=== PATIENT | male | born 1990 | race Caucasian/White ===

== ENCOUNTER 2019-01-18 17:15 | Emergency (ER) | payer BC ==
[~2019-01-18] VITALS: Ht 200.7 cm; Wt 156.5 kg
[~2019-01-18 17:15] MED LIST: BACTRIM DS TAB1 EACH PO; KEFLEX500 MG PO; TRAZODONE HCL50 MG PO; WELLBUTRIN 75 M75 M1 PO
[2019-01-18 17:23] VITALS: BP 139/98
[2019-01-18] MEDS ORDERED: ALEVE220 M1 PO (17:26)
[2019-01-18] MEDS ORDERED: DOXYCYCLINE 10100 MG PO (17:38)
== END 2019-01-18 17:49 | disposition home or self-care (01) ==
LOC: M.ERS 17:15
DX: L02.31 Cutaneous abscess of buttock (principal)